=== PATIENT | female | born 1990 | race American Indian/Alaskan Native ===

== ENCOUNTER 2017-12-09 22:49 | Emergency (ER) | payer SELFPAY ==
[2017-12-10] MEDS ORDERED: TORADOL ONE (01:35)
[2017-12-10] MEDS ORDERED: FLEXERIL ONE (01:36)
[2017-12-10] MEDS ORDERED: TORADOL IM ONE (01:39)
[2017-12-10] MEDS ORDERED: FLEXERIL PO ONE (01:40)
--- NOTE | 2017-12-10 01:42 | Emergency Department Report ---
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 Patient has not tried any medication for her pain. She has denied any trauma. She has no shortness of breathing. Patient reports she is unable to lift her arm because of pain. She has a past medical history of sickle cell trait. SHe takes no medication and has no known drug allergies. ED Review of Systems ROS: Stated complaint: CHEST PAIN,LEFT SHOULDER,BACK,NECK PAIN Other details as noted in HPI Musculoskeletal: arthralgia (left arm and shoulder) ED Past Medical Hx - Past Medical History Previous Medical History?: Yes Hx Asthma: Yes (Childhood) Additional medical history: Sickle Cell Trait - Surgical History Past Surgical History?: No - Social History Smoking Status: Never Smoker - Medications Home Medications: Home Medications Medication Instructions Recorded Confirmed Last Taken Type Cyclobenzaprine [Flexeril 10 MG 10 mg PO TID #30 tablet 12/10/17 Unknown Rx TAB] Ibuprofen [Motrin 600 MG tab] 600 mg PO Q8H PRN #30 tablet 12/10/17 Unknown Rx Upper Extremity Exam - Exam General: Vital signs noted. No distress. Alert and acting appropriately. Head and Torso: No HEENT Abnormality, No Neck Tenderness, No Chest/Lungs Abnormality, No Abdominal Tenderness, No Back Tenderness Shoulder Exam: Yes Shoulder Tenderness, Yes Normal Range of Motion in Shoulder ( which elicit pain), No Clavicle Tenderness (tenderness to the left trapezius), No Shoulder Deformity, No AC Joint Tenderness Arm Exam: No Arm/Humerus Tenderness, No Arm Deformity Elbow: No Elbow Tenderness, No Normal Range of Motion in Elbow, No Elbow Deformity Forearm: No Forearm Tenderness, No Forearm Deformity, No Pain with Pronation, No Pain with Supination Wrist: Yes Normal ROM in Wrist, No Wrist Tenderness, No Wrist Deformity, No Snuffbox Tenderness, No Pain with Axial Thumb Compression Hand: Yes Normal ROM in Digit(s), No Hand Tenderness, No Hand Deformity, No Digit Tenderness, No Digit(s) Deformity, No Tendon Dysfunction CMS Exam: No Broken Skin, No Normal Distal Pulses, No Normal Capillary Refill, No Normal Distal Sensation ED Course Vital Signs 12/09/17 23:32 Temperature 98.3 F Pulse Rate 74 Respiratory 18 Rate Blood Pressure 109/55 O2 Sat by Pulse 100 Oximetry ED Medical Decision Making - Medical Decision Making Patient's been evaluated by this provider fast track. Patient has taken no pain medication for left neck and left shoulder pain has been 10 out of 10 for 3 weeks. I discussed the patient we'll give her Toradol injection and Flexeril and discharge her home and ibuprofen and Flexeril. If symptoms persist or gets worse she needs to follow-up with her primary care provider. Critical care attestation.: If time is entered above; I have spent that time in minutes in the direct care of this critically ill patient, excluding procedure time. ED Disposition Clinical Impression: Muscle spasms of neck, Upper back pain on left side Disposition: DC-01 TO HOME OR SELFCARE Is pt being admited?: No Does the pt Need Aspirin: No Condition: Stable Instructions: Muscle Spasm (ED), Arthralgia (ED) Additional Instructions: He is take pain medication and muscle relaxant as prescribed. If symptoms persist or gets worse please follow-up with the primary care provider. Prescriptions: Cyclobenzaprine [Flexeril 10 MG TAB] 10 mg PO TID #30 tablet Ibuprofen [Motrin 600 MG tab] 600 mg PO Q8H PRN #30 tablet PRN Reason: Pain Referrals: PRIMARY CARE [Primary Care Provider] - 3-5 Days [facility] [Provider Group] - 3-5 Days Forms: Work/School Release Form(ED)
[2017-12-10 02:11] VITALS: BP 107/62
== END 2017-12-10 02:12 | disposition home or self-care (01) ==
LOC: ED 22:49
DX: M54.2 Cervicalgia (principal); R07.9 Chest pain, unspecified
CPT/HCPCS: 96372; 99282; J1885

== ENCOUNTER 2018-02-28 18:43 | Emergency (ER) | payer SELFPAY ==
[2018-02-28 20:15] LABS: Basophils # (Auto) 0.1 K/mm3 (0.0-0.1); Basophils % (Auto) 1.7 % (0.0-1.8); Eosinophils % (Auto) 0.6 % (0.0-4.3); Hemoglobin 9.8 gm/dl (10.1-14.3); Lymphocytes # (Auto) 2.6 K/mm3 (1.2-5.4); Lymphocytes % (Auto) 39.1 % (13.4-35.0); Mean Corpuscular HGB Conc 33 % (30-34); Monocytes # (Auto) 0.9 K/mm3 (0.0-0.8); Monocytes % (Auto) 13.1 % (0.0-7.3); Platelet Count 261 K/mm3 (140-440); Red Blood Count 4.45 M/mm3 (3.65-5.03); Red Cell Distribution Width 16.3 % (13.2-15.2)
[2018-02-28 20:27] LABS: Mean Corpuscular Hemoglobin 22 pg (28-32); Mean Corpuscular Volume 68 fl (79-97)
[2018-02-28 20:30] LABS: BUN/Creatinine Ratio 14; Blood Urea Nitrogen 11 mg/dL (7-17); Calcium 9.8 mg/dL (8.4-10.2); Hemolysis Index 0
[2018-02-28 22:15] LABS: Bilirubin,Urine NEG (Negative); Blood,Urine NEG (Negative); Color,Urine Yellow (Yellow); Mucus,Urine 2+ /HPF; Protein,Urine <15 mg/dL mg/dL (Negative)
[2018-03-01 02:41] VITALS: BP 114/58
[2018-03-01] MEDS ORDERED: XYLOCAINE 1% MPF 5 mL INFILTRATI ONE (02:51)
[2018-03-01] MEDS ORDERED: LIDOCAINE VISCOUS 2% PO ONE (02:51)
[2018-03-01] MEDS ORDERED: ROCEPHIN IM ONE (02:51)
[2018-03-01] MEDS ORDERED: MOTRIN PO ONE (02:51)
[2018-03-01] MEDS ORDERED: ZITHROMAX PO ONE (02:51)
--- NOTE | 2018-03-01 02:52 | Emergency Department Report ---
ED General Adult HPI - General Chief complaint: Chest Pain Stated complaint: CHEST PAIN/SOB/DRY THROAT Time Seen by Provider: 03/01/18 02:21 Source: patient, RN notes reviewed Mode of arrival: Ambulatory Limitations: No Limitations - History of Present Illness Initial comments: This is a 27-year-old female who is not known to this provider previously. She denies chronic medical conditions. Patient denies DVT, pulmonary embolus risk factOrs. Patient endorses occasional cannabis consumption. The patient presents to ER with a primary complaint of chest wall pain. The pain does not radiate to the arms, neck. It also involves the back. There is no vomiting, there is no diaphoresis. It is currently Saturday morning, and the pain has been present intermittently since morning. She denies leg pain, leg swelling, recent trips, recent surgeries, cocaine consumption. The patient also endorses a sore throat and intermittent cough. She endorses intermittent shortness of breath which is currently resolved. The patient also endorses intermittent dysuria. She denies vaginal bleeding or vaginal discharge at this time. She reports that she is not . She reports one new sexual contact without condoms within the past few months. -: Gradual Location: mouth, chest Radiation: non-radiation Severity scale (0 -10): 5 Quality: aching Improves with: none Worsens with: none Associated Symptoms: denies: chest pain, cough, diaphoresis, fever/chills, headaches, loss of appetite, malaise, nausea/vomiting, rash, seizure, shortness of breath, syncope, weakness - Related Data Previous Rx's Medication Instructions Recorded Last Taken Type Cyclobenzaprine [Flexeril 10 MG 10 mg PO TID #30 tablet 12/10/17 Unknown Rx TAB] Ibuprofen [Motrin 600 MG tab] 600 mg PO Q8H PRN #30 tablet 12/10/17 Unknown Rx Ferrous Sulfate [Feosol 325 MG tab] 325 mg PO TID #90 tablet 03/01/18 Unknown Rx Ibuprofen [Ibu] 400 mg PO QID PRN #30 tablet 03/01/18 Unknown Rx Allergies Allergy/AdvReac Type Severity Reaction Status Date / Time No Known Allergies Allergy Verified 12/10/17 01:41 ED Review of Systems ROS: Stated complaint: CHEST PAIN/SOB/DRY THROAT Other details as noted in HPI Constitutional: denies: fever Eyes: denies: vision change ENT: throat pain, congestion Respiratory: cough Cardiovascular: chest pain Gastrointestinal: denies: abdominal pain, vomiting Genitourinary: dysuria Musculoskeletal: denies: back pain Neurological: denies: weakness Psychiatric: anxiety ED Past Medical Hx - Past Medical History Previous Medical History?: Yes Hx Asthma: Yes (Childhood) Additional medical history: Sickle Cell Trait - Surgical History Past Surgical History?: No - Social History Smoking Status: Current Every Day Smoker Substance Use Type: Marijuana - Medications Home Medications: Home Medications Medication Instructions Recorded Confirmed Last Taken Type Cyclobenzaprine [Flexeril 10 MG 10 mg PO TID #30 tablet 12/10/17 Unknown Rx TAB] Ibuprofen [Motrin 600 MG tab] 600 mg PO Q8H PRN #30 tablet 12/10/17 Unknown Rx Ferrous Sulfate [Feosol 325 MG tab] 325 mg PO TID #90 tablet 03/01/18 Unknown Rx Ibuprofen [Ibu] 400 mg PO QID PRN #30 tablet 03/01/18 Unknown Rx ED Physical Exam - General Limitations: No Limitations General appearance: alert, in no apparent distress - Head Head exam: Present: atraumatic, normocephalic - Eye Eye exam: Present: normal appearance, EOMI. Absent: nystagmus - ENT ENT exam: Present: normal exam, normal orophraynx, mucous membranes moist, normal external ear exam - Neck Neck exam: Present: normal inspection, full ROM. Absent: tenderness, meningismus, lymphadenopathy - Respiratory Respiratory exam: Present: normal lung sounds bilaterally. Absent: respiratory distress - Cardiovascular Cardiovascular Exam: Present: regular rate, normal rhythm, normal heart sounds. Absent: bradycardia, tachycardia, irregular rhythm, systolic murmur, diastolic murmur, rubs, gallop - GI/Abdominal GI/Abdominal exam: Present: soft. Absent: distended, tenderness, guarding, rebound, rigid, pulsatile mass - Extremities Exam Extremities exam: Present: normal inspection, full ROM, normal capillary refill. Absent: tenderness, pedal edema, joint swelling, calf tenderness - Back Exam Back exam: Present: normal inspection, full ROM. Absent: tenderness, CVA tenderness (R), paraspinal tenderness, vertebral tenderness - Neurological Exam Neurological exam: Present: alert, oriented X3, CN II-XII intact, normal gait, other (Extraocular movements intact. Tongue midline. No facial droop. Facial sensation intact to light touch in the V1, V2, V3 distribution bilaterally. 5 and 5 strength in 4 extremities.. Sensation is intact to light touch in 4 extremities.). Absent: motor sensory deficit - Psychiatric Psychiatric exam: Present: anxious - Skin Skin exam: Present: warm, dry, intact, normal color. Absent: rash ED Course Vital Signs 02/28/18 03/01/18 19:57 02:40 Temperature 98.9 F 98.4 F Pulse Rate 68 62 Respiratory 17 18 Rate Blood Pressure 110/70 Blood Pressure 114/58 [Right] O2 Sat by Pulse 100 100 Oximetry ED Medical Decision Making - Lab Data Result diagrams: 02/28/18 20:04 02/28/18 20:04 Vital Signs 02/28/18 03/01/18 19:57 02:40 Temperature 98.9 F 98.4 F Pulse Rate 68 62 Respiratory 17 18 Rate Blood Pressure 110/70 Blood Pressure 114/58 [Right] O2 Sat by Pulse 100 100 Oximetry Labs 02/28/18 02/28/18 02/28/18 20:04 20:04 20:04 WBC 6.6 RBC 4.45 Hgb 9.8 L Hct 30.0 L MCV 68 L MCH 22 L MCHC 33 RDW 16.3 H Plt Count 261 Lymph % (Auto) 39.1 H [place] % (Auto) 13.1 H Eos % (Auto) 0.6 Baso % (Auto) 1.7 Lymph # 2.6 [place] # 0.9 H Eos # 0.0 Baso # 0.1 Seg Neutrophils % 45.5 Seg Neutrophils # 3.0 Sodium 137 Potassium 4.1 Chloride 100.8 Carbon Dioxide 22 Anion Gap 18 BUN 11 Creatinine 0.8 Estimated GFR > 60 BUN/Creatinine Ratio 14 Glucose 86 Calcium 9.8 Troponin T < 0.010 HCG, Qual Negative Urine Color Urine Turbidity Urine pH Ur Specific [place] Urine Protein Urine Glucose (UA) Urine Ketones Urine Blood Urine Nitrite Urine Bilirubin Urine Urobilinogen Ur Leukocyte Esterase Urine WBC (Auto) Urine RBC (Auto) U Epithel Cells (Auto) Urine Mucus 02/28/18 02/28/18 21:39 23:16 WBC RBC Hgb Hct MCV MCH MCHC RDW Plt Count Lymph % (Auto) [place] % (Auto) Eos % (Auto) Baso % (Auto) Lymph # [place] # Eos # Baso # Seg Neutrophils % Seg Neutrophils # Sodium Potassium Chloride Carbon Dioxide Anion Gap BUN Creatinine Estimated GFR BUN/Creatinine Ratio Glucose Calcium Troponin T < 0.010 HCG, Qual Urine Color Yellow Urine Turbidity Clear Urine pH 5.0 Ur Specific [place] 1.015 Urine Protein <15 mg/dl Urine Glucose (UA) Neg Urine Ketones Neg Urine Blood Neg Urine Nitrite Neg Urine Bilirubin Neg Urine Urobilinogen 4.0 Ur Leukocyte Esterase Sm Urine WBC (Auto) 18.0 H Urine RBC (Auto) 4.0 U Epithel Cells (Auto) 3.0 Urine Mucus 2+ - EKG Data -: EKG Interpreted by Me EKG shows normal: sinus rhythm, axis, intervals, QRS complexes, ST-T waves - Radiology Data Radiology results: report reviewed, image reviewed x-ray the chest is negative for acute disease - Medical Decision Making Differential diagnosis, including but not limited to, GERD, gastritis, hiatal hernia, pneumonia, pneumothorax, pericarditis, myocarditis, acute coronary syndrome, chlamydia cystitis, incidental asymptomatic microcytic anemia Assessment and plan: 27-year-old female with 2 major complaints. Patient's chest pain is low risk by LONNY score, heart score, Wells criteria, has no pulmonary embolus or DVT risk factors and his perc negative Troponin negative 2, EKG unremarkable 1, and x-ray of the chest is negative for acute disease. The patient at low risk for major adverse cardiac event and is suitable to follow-up with her outpatient primary care doctor or head of product for her chest pain. Patient also endorsed intermittent dysuria. Urinalysis suggests but does not definitively diagnose chlamydia cystitis. Cultures will be sent, patient will be covered empirically, STD precautions are reviewed with the patient, and she can follow up for this. The patient's microcytic anemia is asymptomatic, she endorses heavy menstruation , she can be started on supplementation for this. Critical care attestation.: If time is entered above; I have spent that time in minutes in the direct care of this critically ill patient, excluding procedure time. ED Disposition Clinical Impression: Chest pain, Microcytic anemia, Dysuria Disposition: - TO HOME OR SELFCARE Is pt being admited?: No Does the pt Need Aspirin: No Condition: Stable Instructions: Chest Pain (ED), Iron Deficiency Anemia (ED), Chlamydia Infection (ED) Additional Instructions: Cultures were sent today, and results will be available next 3-5 days. Please have your primary care doctor call the medical records department to obtain your culture results. Take the antibiotic therapy as directed. Take the nausea medication and pain medication as directed. I recommend outpatient testing for sexually transmitted diseases, including hepatitis, syphilis and HIV. I also recommend that you abstain from sexual activity until you have completed her antibiotic therapy, a physician states that it is safe for you to resume sexual activity, and any partners that you have been sexually active with have been tested/treated/evaluated for sexual transmitted diseases. Please follow-up with physician within 3-5 days. I recommend that you return to the ER right away with worsening pain, migration of pain, intractable nausea/vomiting, inability tolerate liquid feeds. The iron sulfate supplementation may cause constipation, drink 3-5 cups of water a day. Make certain to eat plenty of leafy vegetables. This medication may also change the color of stools to black. Follow-up with any of listed cardiology groups within the next 3-5 days. Follow-up with any of the listed gynecology groups within the next month. Referrals: PRIMARY CARE, [Primary Care Provider] - 3-5 Days [facility] [Provider Group] - 3-5 Days [facility] [Provider Group] - 3-5 Days [facility] [Provider Group] - 3-5 Days [facility] [Provider Group] - 3-5 Days
--- NOTE | 2018-03-01 03:10 | XRay Report ---
FINAL REPORT PROCEDURE: XR CHEST ROUTINE 2V TECHNIQUE: PA and lateral chest radiographs were obtained. CPT 16885 HISTORY: cp COMPARISON: No prior studies are available for comparison. FINDINGS: Heart: Normal. Mediastinum/Vessels: Normal. Lungs/Pleural space: Normal. Bony thorax: No acute osseous abnormality. Other: IMPRESSION: Normal examination.
== END 2018-03-01 03:47 | disposition home or self-care (01) ==
LOC: ED 18:43
DX: R07.89 Other chest pain (principal); D50.9 Iron deficiency anemia, unspecified; R30.0 Dysuria; J45.909 Unspecified asthma, uncomplicated; F17.200 Nicotine dependence, unspecified, uncomplicated; F12.10 Cannabis abuse, uncomplicated; F41.9 Anxiety disorder, unspecified
CPT/HCPCS: 36415; 71046; 80048; 81001; 84484; 84703; 85025; 87086; 93005; 93010; 96372; 99284; J0696

== ENCOUNTER 2019-04-28 17:52 | Emergency (ER) | payer SELFPAY ==
--- NOTE | 2019-04-28 20:22 | Emergency Department Report ---
Chief Complaint: Extremity Injury, Upper Stated Complaint: SHAKING/LOSS OF EATING/N/ - HPI History of Present Illness: 28yo BF states that she has experienced chills and lack of appetite for 3 days. Also, she states that she has a sore throat. MSE screening note: Focused history and physical exam performed. Due to findings the following was ordered: ED Disposition for MSE Condition: Stable
[2019-04-28 21:08] VITALS: BP 112/75
[2019-04-28 21:17] LABS: Basophils # (Auto) 0.1 K/mm3 (0.0-0.1); Eosinophils # (Auto) 0.1 K/mm3 (0.0-0.4); Eosinophils % (Auto) 0.9 % (0.0-4.3); Hematocrit 28.3 % (30.3-42.9); Lymphocytes # (Auto) 2.6 K/mm3 (1.2-5.4); Mean Corpuscular HGB Conc 32 % (30-34); Monocytes # (Auto) 0.7 K/mm3 (0.0-0.8); Monocytes % (Auto) 11.1 % (0.0-7.3); Platelet Count 250 K/mm3 (140-440); Red Blood Count 4.44 M/mm3 (3.65-5.03); Red Cell Distribution Width 19.8 % (13.2-15.2)
[2019-04-28 21:19] LABS: Alanine Aminotransferase 20 units/L (7-56); Albumin 4.5 g/dL (3.9-5); BUN/Creatinine Ratio 14; Blood Urea Nitrogen 10 mg/dL (7-17); Calcium 9.3 mg/dL (8.4-10.2); Hemolysis Index 4
[2019-04-28 21:27] LABS: Mean Corpuscular Volume 64 fl (79-97)
--- NOTE | 2019-04-28 22:54 | Emergency Department Report ---
ED General Adult HPI - General Chief complaint: Extremity Injury, Upper Stated complaint: SHAKING/LOSS OF EATING/N/ Time Seen by Provider: 04/28/19 20:55 Source: patient Mode of arrival: Ambulatory Limitations: No Limitations - History of Present Illness Initial comments: Patient is a 28-year-old female presents emergency room with complaints of sore throat that began 3 days ago. She has associated chills, decreased appetite, discomfort with swallowing. denies any sick contacts. Denies any fever, nausea, vomiting, diarrhea, coughing. Her last menstrual cycle was April 08. she has a past medical history of sickle cell trait and asthma. Denies any allergies medications. Severity scale (0 -10): 6 - Related Data Previous Rx's Medication Instructions Recorded Last Taken Type Cyclobenzaprine [Flexeril 10 MG 10 mg PO TID #30 tablet 12/10/17 Unknown Rx TAB] Ibuprofen [Motrin 600 MG tab] 600 mg PO Q8H PRN #30 tablet 12/10/17 Unknown Rx Ferrous Sulfate [Feosol 325 MG tab] 325 mg PO TID #90 tablet 03/01/18 Unknown Rx Ibuprofen [Ibu] 400 mg PO QID PRN #30 tablet 03/01/18 Unknown Rx Ketorolac [Toradol] 10 mg PO Q6H PRN #12 tablet 11/29/18 Unknown Rx traMADol [Ultram] 50 mg PO Q6HR PRN #12 tablet 11/29/18 Unknown Rx Ferrous Sulfate [Ferrous Sulfate 324 mg PO DAILY #30 tablet.dr 04/28/19 Unknown Rx 324 MG] Nystas/Diphen/Xyl Visc/Mylanta 30 ml MM TID PRN #480 ml 04/28/19 Unknown Rx [Magic Mouthwash] Allergies Allergy/AdvReac Type Severity Reaction Status Date / Time No Known Allergies Allergy Verified 11/29/18 11:25 ED Review of Systems ROS: Stated complaint: SHAKING/LOSS OF EATING/N/ Other details as noted in HPI Comment: All other systems reviewed and negative ED Past Medical Hx - Past Medical History Previous Medical History?: Yes Hx Hypertension: No Hx CVA: No Hx Heart Attack/AMI: No Hx Congestive Heart Failure: No Hx Diabetes: No Hx Deep Vein Thrombosis: No Hx Pulmonary Embolism: No Hx GERD: No Hx Liver Disease: No Hx Renal Disease: No Hx of Cancer: No Hx Sickle Cell Disease: No Hx Arthritis: No Hx Headaches / Migraines: No Hx Seizures: No Hx Kidney Stones: No Hx Psychiatric Treatment: No Hx Asthma: Yes (Childhood) Hx COPD: No Hx Tuberculosis: No Hx Dementia: No Hx HIV: No Additional medical history: Sickle Cell Trait - Surgical History Past Surgical History?: No Hx Coronary Stent: No Hx Open Heart Surgery: No Hx Pacemaker: No Hx Internal Defibrillator: No Hx Cholecystectomy: No Hx Appendectomy: No Hx Breast Surgery: No - Social History Smoking Status: Never Smoker Substance Use Type: None - Medications Home Medications: Home Medications Medication Instructions Recorded Confirmed Last Taken Type Cyclobenzaprine [Flexeril 10 MG 10 mg PO TID #30 tablet 12/10/17 Unknown Rx TAB] Ibuprofen [Motrin 600 MG tab] 600 mg PO Q8H PRN #30 tablet 12/10/17 Unknown Rx Ferrous Sulfate [Feosol 325 MG tab] 325 mg PO TID #90 tablet 03/01/18 Unknown Rx Ibuprofen [Ibu] 400 mg PO QID PRN #30 tablet 03/01/18 Unknown Rx Ketorolac [Toradol] 10 mg PO Q6H PRN #12 tablet 11/29/18 Unknown Rx traMADol [Ultram] 50 mg PO Q6HR PRN #12 tablet 11/29/18 Unknown Rx Ferrous Sulfate [Ferrous Sulfate 324 mg PO DAILY #30 tablet.dr 04/28/19 Unknown Rx 324 MG] Nystas/Diphen/Xyl Visc/Mylanta 30 ml MM TID PRN #480 ml 04/28/19 Unknown Rx [Magic Mouthwash] ED Physical Exam - General Limitations: No Limitations General appearance: alert, in no apparent distress - Head Head exam: Present: atraumatic, normocephalic - Eye Eye exam: Present: normal appearance - ENT ENT exam: Present: normal orophraynx, mucous membranes moist, TM's normal bilaterally, normal external ear exam - Respiratory Respiratory exam: Present: normal lung sounds bilaterally. Absent: respiratory distress, wheezes, rales, rhonchi, stridor, chest wall tenderness, accessory muscle use, decreased breath sounds, prolonged expiratory - Cardiovascular Cardiovascular Exam: Present: regular rate, normal rhythm, normal heart sounds. Absent: systolic murmur, diastolic murmur, rubs, gallop - Neurological Exam Neurological exam: Present: alert, oriented X3 - Psychiatric Psychiatric exam: Present: normal affect, normal mood - Skin Skin exam: Present: warm, dry, intact ED Course Vital Signs 04/28/19 04/28/19 20:19 21:06 Temperature 98.5 F 98.2 F Pulse Rate 94 H 73 Respiratory 18 12 Rate Blood Pressure 128/63 Blood Pressure 112/75 [Right] O2 Sat by Pulse 100 98 Oximetry ED Medical Decision Making - Lab Data Result diagrams: 04/28/19 20:29 04/28/19 20:29 Lab Results 04/28/19 04/28/19 04/28/19 Range/Units 20:20 20:29 20:29 WBC 6.3 (4.5-11.0) K/mm3 RBC 4.44 (3.65-5.03) M/mm3 Hgb 9.0 L (10.1-14.3) gm/dl Hct 28.3 L (30.3-42.9) % MCV 64 L (79-97) fl MCH 20 L (28-32) pg MCHC 32 (30-34) % RDW 19.8 H (13.2-15.2) % Plt Count 250 (140-440) K/mm3 Lymph % (Auto) 42.0 H (13.4-35.0) % [place] % (Auto) 11.1 H (0.0-7.3) % Eos % (Auto) 0.9 (0.0-4.3) % Baso % (Auto) 1.0 (0.0-1.8) % Lymph # 2.6 (1.2-5.4) K/mm3 [place] # 0.7 (0.0-0.8) K/mm3 Eos # 0.1 (0.0-0.4) K/mm3 Baso # 0.1 (0.0-0.1) K/mm3 Seg Neutrophils % 45.0 (40.0-70.0) % Seg Neutrophils # 2.8 (1.8-7.7) K/mm3 Sodium 135 L (137-145) mmol/L Potassium 3.9 (3.6-5.0) mmol/L Chloride 99.7 (98-107) mmol/L Carbon Dioxide 20 L (22-30) mmol/L Anion Gap 19 mmol/L BUN 10 (7-17) mg/dL Creatinine 0.7 (0.7-1.2) mg/dL Estimated GFR > 60 ml/min BUN/Creatinine Ratio 14 % Glucose 81 (65-100) mg/dL Calcium 9.3 (8.4-10.2) mg/dL Total Bilirubin 0.20 (0.1-1.2) mg/dL AST 27 (5-40) units/L ALT 20 (7-56) units/L Alkaline Phosphatase 41 (35-129) units/L Total Protein 8.1 (6.3-8.2) g/dL Albumin 4.5 (3.9-5) g/dL Albumin/Globulin Ratio 1.3 % Monoscreen (Negative) Group A Strep Rapid Negative (Negative) 04/28/19 Range/Units Unknown WBC (4.5-11.0) K/mm3 RBC (3.65-5.03) M/mm3 Hgb (10.1-14.3) gm/dl Hct (30.3-42.9) % MCV (79-97) fl MCH (28-32) pg MCHC (30-34) % RDW (13.2-15.2) % Plt Count (140-440) K/mm3 Lymph % (Auto) (13.4-35.0) % [place] % (Auto) (0.0-7.3) % Eos % (Auto) (0.0-4.3) % Baso % (Auto) (0.0-1.8) % Lymph # (1.2-5.4) K/mm3 [place] # (0.0-0.8) K/mm3 Eos # (0.0-0.4) K/mm3 Baso # (0.0-0.1) K/mm3 Seg Neutrophils % (40.0-70.0) % Seg Neutrophils # (1.8-7.7) K/mm3 Sodium (137-145) mmol/L Potassium (3.6-5.0) mmol/L Chloride (98-107) mmol/L Carbon Dioxide (22-30) mmol/L Anion Gap mmol/L BUN (7-17) mg/dL Creatinine (0.7-1.2) mg/dL Estimated GFR ml/min BUN/Creatinine Ratio % Glucose (65-100) mg/dL Calcium (8.4-10.2) mg/dL Total Bilirubin (0.1-1.2) mg/dL AST (5-40) units/L ALT (7-56) units/L Alkaline Phosphatase (35-129) units/L Total Protein (6.3-8.2) g/dL Albumin (3.9-5) g/dL Albumin/Globulin Ratio % Monoscreen Negative (Negative) Group A Strep Rapid (Negative) - Medical Decision Making Patient is a 28-year-old female presents emergency room with complaints of sore throat that began 3 days ago. She has associated chills, decreased appetite, discomfort with swallowing. denies any sick contacts. Denies any fever, naus ea, vomiting, diarrhea, coughing. Her last menstrual cycle was April 08. she has a past medical history of sickle cell trait and asthma. Denies any allergies medications. VSS. normal oropharynx, breath sounds are clear bilaterally. rapid strep is negative. monotest is negative. labs with microcytic anemia with H/H stable at 9/28. pt eloped from the emergency department prior to completion of testing and prior to receiving discharge paperwork/prescriptions and counseling. - Differential Diagnosis strep, pharyngitis, mono, viral syndrome, URI Critical care attestation.: If time is entered above; I have spent that time in minutes in the direct care of this critically ill patient, excluding procedure time. ED Disposition Clinical Impression: Sore throat, Chills, Decreased appetite Anemia Qualifiers: Anemia type: unspecified type Qualified Code(s): D64.9 - Anemia, unspecified Disposition: ELOPED Is pt being admited?: No Does the pt Need Aspirin: No Condition: Undetermined Instructions: Iron Rich Diet (ED), Anemia (ED) Additional Instructions: Please take medication as prescribed as needed. May use warm salt water gargles and throat spray. May drink warm tea and increase your fluid intake. Take Tylenol or ibuprofen for any discomfort. follow up with a primary care doctor in the next 2-3 days. return to the emergency room for any new or worsening symptoms. Prescriptions: Ferrous Sulfate [Ferrous Sulfate 324 MG] 324 mg PO DAILY #30 tablet.dr [place]/Diphen/Xyl Visc/Mylanta [Magic Mouthwash] 30 ml MM TID PRN #480 ml PRN Reason: sore throat Referrals: [facility] [Provider Group] - 2-3 Days Time of Disposition: 22:52 Print Language: IRISH
== END 2019-04-28 23:00 | disposition left against medical advice (07) ==
LOC: ED 17:52
DX: J02.9 Acute pharyngitis, unspecified (principal); R63.0 Anorexia; D64.9 Anemia, unspecified; R68.83 Chills (without fever); J45.909 Unspecified asthma, uncomplicated; Z79.899 Other long term (current) drug therapy
CPT/HCPCS: 36415; 80053; 85025; 86308; 87116; 87430

== ENCOUNTER 2020-07-28 14:15 | Emergency (ER) | payer MEDICAID ==
[2020-07-28 14:43] VITALS: BP 120/72
--- NOTE | 2020-07-28 14:49 | Emergency Department Report ---
ED General Adult HPI - General Stated complaint: ASTHMA PUMP Time Seen by Provider: 07/28/20 14:39 - History of Present Illness Initial comments: 29-year-old -Tong[place] female presents with complaints of shortness of breath for the past few days. Patient states she tested positive for COVID-19 3 days ago. She states her symptoms began with body aches and chills 7 days ago. She denies any cough or hemoptysis. She states she has a history of asthma and that her lungs feel tight. Patient is requesting albuterol inhaler. - Related Data Previous Rx's Medication Instructions Recorded Last Taken Type Cyclobenzaprine [Flexeril 10 MG 10 mg PO TID #30 tablet 12/10/17 Unknown Rx TAB] Ibuprofen [Motrin 600 MG tab] 600 mg PO Q8H PRN #30 tablet 12/10/17 Unknown Rx Ferrous Sulfate [Feosol 325 MG tab] 325 mg PO TID #90 tablet 03/01/18 Unknown Rx Ibuprofen [Ibu] 400 mg PO QID PRN #30 tablet 03/01/18 Unknown Rx Ketorolac [Toradol] 10 mg PO Q6H PRN #12 tablet 11/29/18 Unknown Rx traMADoL [Ultram] 50 mg PO Q6HR PRN #12 tablet 11/29/18 Unknown Rx Ferrous Sulfate [Ferrous Sulfate 324 mg PO DAILY #30 tablet.dr 04/28/19 Unknown Rx 324 MG] Nystas/Diphen/Xyl Visc/Mylanta 30 ml MM TID PRN #480 ml 04/28/19 Unknown Rx [Magic Mouthwash] Albuterol Mdi (or & Nicu Only) 2 puff IH Q4H PRN #8.5 gram 07/28/20 Unknown Rx [ProAir HFA Inhaler] Prednisone [predniSONE 10 mg 10 mg PO .TAPER #1 tab.ds.pk 07/28/20 Unknown Rx (6-Day Pack, 21 Tabs)] Allergies Allergy/AdvReac Type Severity Reaction Status Date / Time No Known Allergies Allergy Verified 11/29/18 11:25 ED Review of Systems ROS: Stated complaint: ASTHMA PUMP Other details as noted in HPI Constitutional: see HPI. denies: chills, fever ENT: denies: ear pain Respiratory: shortness of breath. denies: cough, SOB with exertion Cardiovascular: denies: chest pain Endocrine: denies: excessive sweating Gastrointestinal: denies: abdominal pain, nausea, vomiting, diarrhea Skin: denies: rash, lesions, change in color Neurological: denies: headache ED Past Medical Hx - Past Medical History Hx Hypertension: No Hx CVA: No Hx Heart Attack/AMI: No Hx Congestive Heart Failure: No Hx Diabetes: No Hx Deep Vein Thrombosis: No Hx Pulmonary Embolism: No Hx GERD: No Hx Liver Disease: No Hx Renal Disease: No Hx Sickle Cell Disease: No Hx Arthritis: No Hx Headaches / Migraines: No Hx Seizures: No Hx Kidney Stones: No Hx Psychiatric Treatment: No Hx Asthma: Yes (Childhood) Hx COPD: No Hx Tuberculosis: No Hx Dementia: No Hx HIV: No Additional medical history: Sickle Cell Trait - Surgical History Hx Coronary Stent: No Hx Open Heart Surgery: No Hx Pacemaker: No Hx Internal Defibrillator: No Hx Cholecystectomy: No Hx Appendectomy: No Hx Breast Surgery: No - Social History Smoking Status: Never Smoker Substance Use Type: None - Medications Home Medications: Home Medications Medication Instructions Recorded Confirmed Last Taken Type Cyclobenzaprine [Flexeril 10 MG 10 mg PO TID #30 tablet 12/10/17 Unknown Rx TAB] Ibuprofen [Motrin 600 MG tab] 600 mg PO Q8H PRN #30 tablet 12/10/17 Unknown Rx Ferrous Sulfate [Feosol 325 MG tab] 325 mg PO TID #90 tablet 03/01/18 Unknown Rx Ibuprofen [Ibu] 400 mg PO QID PRN #30 tablet 03/01/18 Unknown Rx Ketorolac [Toradol] 10 mg PO Q6H PRN #12 tablet 11/29/18 Unknown Rx traMADoL [Ultram] 50 mg PO Q6HR PRN #12 tablet 11/29/18 Unknown Rx Ferrous Sulfate [Ferrous Sulfate 324 mg PO DAILY #30 tablet.dr 04/28/19 Unknown Rx 324 MG] Nystas/Diphen/Xyl Visc/Mylanta 30 ml MM TID PRN #480 ml 04/28/19 Unknown Rx [Magic Mouthwash] Albuterol Mdi (or & Nicu Only) 2 puff IH Q4H PRN #8.5 gram 07/28/20 Unknown Rx [ProAir HFA Inhaler] Prednisone [predniSONE 10 mg 10 mg PO .TAPER #1 tab.ds.pk 07/28/20 Unknown Rx (6-Day Pack, 21 Tabs)] ED Physical Exam - General General appearance: alert, in no apparent distress - Head Head exam: Present: atraumatic, normocephalic - Eye Eye exam: Present: normal appearance - ENT ENT exam: Present: normal exam - Neck Neck exam: Present: normal inspection, full ROM - Respiratory Respiratory exam: Present: normal lung sounds bilaterally. Absent: respiratory distress - Cardiovascular Cardiovascular Exam: Present: regular rate - Extremities Exam Extremities exam: Present: full ROM. Absent: calf tenderness (No swelling noted) - Back Exam Back exam: Present: full ROM - Neurological Exam Neurological exam: Present: alert, oriented X3, normal gait - Psychiatric Psychiatric exam: Present: normal affect, normal mood ED Medical Decision Making - Radiology Data Radiology results: report reviewed XR chest routine 2V INDICATION / CLINICAL INFORMATION: SOB, +covid. COMPARISON: None available. FINDINGS: SUPPORT DEVICES: None. HEART /PULMONARY VASCULATURE: No significant abnormality. LUNGS / PLEURA: No significant pulmonary or pleural abnormality. No pneumothorax. ADDITIONAL FINDINGS: No significant additional findings. IMPRESSION: No acute cardiopulmonary findings. - Medical Decision Making 29-year-old -[place] female presents with complaints of shortness of breath for the past few days. Patient states she tested positive for COVID-19 3 days ago. She states her symptoms began with body aches and chills 7 days ago. She denies any cough or hemoptysis. She states she has a history of asthma and that her lungs feel tight. Patient is requesting albuterol inhaler. Ambulatory pulse ox remained at 98% on room air while ambulating approximately 30 feet. Patient denies shortness of breath with ambulation. Lungs are clear on exam. Chest x-ray is normal. Will treat symptomatically with inhaler and prednisone. Discussed signs and symptoms that should prompt immediate return to the emergency department in detail with patient who verbalizes understanding. She is well-appearing and stable for discharge home. Patient to follow-up with her primary care doctor in 3 to 5 days and continue to self quarantine. Critical care attestation.: If time is entered above; I have spent that time in minutes in the direct care of this critically ill patient, excluding procedure time. ED Disposition Clinical Impression: Dyspnea due to COVID-19 Disposition: DC- TO HOME OR SELFCARE Is pt being admited?: No Condition: Stable Instructions: COVID-19, Prevent the Spread of COVID-19 if You Are Sick - [facility] [place] Additional Instructions: Your chest x-ray is normal. Please self quarantine for total period of 14 days since the start of your symptoms. If you develop increased shortness of breath, chest pain, coughing up blood, or any new or worsening symptoms, seek immediate emergency treatment. Prescriptions: Prednisone [predniSONE 10 mg (6-Day Pack, 21 Tabs)] 10 mg PO .TAPER #1 tab.ds.pk Albuterol Mdi (or & Nicu Only) [ProAir HFA Inhaler] 2 puff IH Q4H PRN #8.5 gram PRN Reason: Shortness Of Breath Referrals: [facility] [Provider Group] - 3-5 Days
--- NOTE | 2020-07-28 15:28 | XRay Report ---
XR chest routine 2V INDICATION / CLINICAL INFORMATION: SOB, +covid. COMPARISON: None available. FINDINGS: SUPPORT DEVICES: None. HEART /PULMONARY VASCULATURE: No significant abnormality. LUNGS / PLEURA: No significant pulmonary or pleural abnormality. No pneumothorax. ADDITIONAL FINDINGS: No significant additional findings. IMPRESSION: No acute cardiopulmonary findings. Signer Name: Dorian Lau MD Signed: 07/28/2020 3:24 PM Workstation Name: [id number]
== END 2020-07-28 16:30 | disposition home or self-care (01) ==
LOC: ED 14:15
DX: U07.1 COVID-19 (principal); R06.00 Dyspnea, unspecified; Z79.1 Long term (current) use of non-steroidal anti-inflammatories (NSAID); Z79.899 Other long term (current) drug therapy
CPT/HCPCS: 71046